=== PATIENT | female | born 1995 | race Caucasian/White ===

== ENCOUNTER 2019-03-16 06:31 | Emergency (ER) | payer OTHER ==
[~2019-03-16] VITALS: Ht 157.5 cm; Wt 59.0 kg
[2019-03-16] MEDS ORDERED: CORTISPORIN OTI10 M2 OTIC (08:21)
[2019-03-16 08:36] VITALS: BP 110/85
== END 2019-03-16 08:37 | disposition home or self-care (01) ==
LOC: ER 06:31
DX: H60.91 Unspecified otitis externa, right ear (principal); J45.909 Unspecified asthma, uncomplicated; Z98.890 Other specified postprocedural states